=== PATIENT | female | born 1960 | race Caucasian/White ===

== ENCOUNTER 2018-03-21 05:22 | Emergency (ER) | payer OTHER ==
[2018-03-21] MEDS: ACETAMINOPHEN 325 MG TAB PO (05:44)
[2018-03-21] MEDS: DEXTROSE 50% 50 ML SYRINGE IV (05:44)
[2018-03-21 05:46] LABS: ADD MAN DIFF? NO
[2018-03-21 05:48] LABS: BASOPHILS % 0.4 % (0.0-2.0); EOSINOPHILS # 0.2 10^3/ul (0.0-0.5); EOSINOPHILS % 2.5 % (0.0-7.0); HEMATOCRIT 39.5 % (37.0-47.0); HEMOGLOBIN 11.5 g/dl (12.0-16.0); LYMPHOCYTES # 0.7 10^3/ul (0.8-2.9); MEAN CORPUSCULAR HEMOGLOBIN 23.9 pg (29.0-33.0); MEAN CORPUSCULAR HGB CONC 29.1 g/dl (32.0-37.0); MEAN PLATELET VOLUME 9.3 fl (7.4-10.4); MONOCYTE # 0.6 10^3/ul (0.3-0.9); MONOCYTES % 7.6 % (0.0-11.0); NEUTROPHIL # 6.2 10^3/ul (1.6-7.5); NEUTROPHILS % 80.1 % (39.0-77.0); PLATELET COUNT 303 10^3/UL (140-415); RED BLOOD COUNT 4.82 10^6/ul (4.20-5.40); RED CELL DISTRIBUTION WIDTH 20.8 % (11.5-14.5)
[2018-03-21 05:48] LABS: WHITE BLOOD COUNT 7.7 10^3/ul (4.8-10.8)
[2018-03-21 06:07] LABS: ANION GAP 13 (5-13); BLOOD UREA NITROGEN 13 mg/dl (7-20); CALCIUM 9.3 mg/dl (8.4-10.2); CARBON DIOXIDE 23 mmol/L (21-31); CHLORIDE 107 mmol/L (97-110); CREATININE 0.68 mg/dl (0.44-1.00); Estimated GFR > 60 mL/min (>60); GLUCOSE 68 mg/dl (70-220); POTASSIUM 4.4 mmol/L (3.5-5.1); SODIUM 143 mmol/L (135-144)
[2018-03-21 06:18] LABS: TROPONIN-I 0.029 ng/ml (0.000-0.120)
[2018-03-21 07:50] LABS: MAGNESIUM 1.6 mg/dl (1.7-2.5)
[2018-03-21 07:50] LABS: ADD UMIC NO; CHOL/HDL RATIO 2.9 RATIO; CHOLESTEROL 118 mg/dl (100-200); HDL CHOLESTEROL 40 mg/dl (37-92); LDL CHOLESTEROL,CALCULATED 60 mg/dl; TRIGLYCERIDES 91 mg/dl (0-149); UR ASCORBIC ACID NEGATIVE (NEGATIVE); UR BILIRUBIN (Dip) NEGATIVE (NEGATIVE); UR BLOOD (Dip) NEGATIVE (NEGATIVE); UR CLARITY CLEAR (CLEAR); UR COLOR STRAW (YELLOW); UR GLUCOSE (Dip) 1+ mg/dL (NEGATIVE); UR KETONES (Dip) NEGATIVE (NEGATIVE); UR LEUKOCYTE ESTERASE (Dip) NEGATIVE Leu/ul (NEGATIVE); UR NITRITE (Dip) NEGATIVE (NEGATIVE); UR SPECIFIC GRAVITY (Dip) 1.002 (1.003-1.030); UR TOTAL PROTEIN (Dip) NEGATIVE (NEGATIVE); UR UROBILINOGEN (Dip) NEGATIVE (NEGATIVE)
[2018-03-21 07:55] LABS: HEMOGLOBIN A1C 5.2 % (0-5.9)
[2018-03-21] MEDS: ONDANSETRON (ODT) 4 MG TAB ODT (08:26)
[2018-03-21 08:27] LABS: FERRITIN 35.8 ng/ml (11.1-264.0)
[2018-03-21 09:06] LABS: FOLATE 6.9 ng/ml (2.8-20.0)
[2018-03-22 15:17] LABS: CREATININE, RANDOM URINE 8 mg/dL (20-275); MICROALBUMIN 7.2 mg/dL; MICROALBUMIN/CREATININE RATIO 900 (<30)
== END 2018-03-21 11:00 | disposition home or self-care (01) ==
LOC: E/R 05:22
DX: E11.641 Type 2 diabetes mellitus with hypoglycemia with coma (principal); R40.2142 Coma scale, eyes open, spontaneous, at arrival to emergency department; R40.2362 Coma scale, best motor response, obeys commands, at arrival to emergency department; R40.2252 Coma scale, best verbal response, oriented, at arrival to emergency department; I10 Essential (primary) hypertension; Z79.4 Long term (current) use of insulin; Z95.1 Presence of aortocoronary bypass graft
CPT/HCPCS: 36415; 73562; 73590; 80048; 80061; 81003; 82043; 82607; 82652; 82728; 82746; 82962; 83036; 83735; 84484; 85025; 93005; 96374; 99285-25